=== PATIENT | female | born 1990 | race Two or more races ===

== ENCOUNTER 2023-11-29 17:48 | Emergency (ER) | payer OTHER, MEDICAID ==
[~2023-11-29] VITALS: Ht 170.2 cm; Wt 167.2 kg
[2023-11-29 23:40] VITALS: BP 137/72; PULSE 88; RESP 16; TEMP 97.6; O2SAT 98
[2023-11-29] MEDS ORDERED: CEPH500C PO (23:59)
[2023-11-29] MEDS ORDERED: ACET500T58 PO (23:59)
[2023-11-30] MEDS: LIDOCAINE 1% HCL (LOCAL ANESTH.) INJ 20ML MDV ID ONE (00:25)
== END 2023-11-30 00:54 | disposition home or self-care (01) ==
LOC: ER 17:48
DX: O9A.213 Injury, poisoning and certain other consequences of external causes complicating pregnancy, third trimester (principal); S61.412A Laceration without foreign body of left hand, initial encounter; Z3A.31 31 weeks gestation of pregnancy; E11.9 Type 2 diabetes mellitus without complications; Z88.8 Allergy status to other drugs, medicaments and biological substances; Z79.899 Other long term (current) drug therapy; W26.0XXA Contact with knife, initial encounter; Y93.89 Activity, other specified; Y92.89 Other specified places as the place of occurrence of the external cause; Y99.8 Other external cause status
CPT/HCPCS: 12001; 99283; J2001